=== PATIENT | male | born 1945 | race Caucasian/White ===

== ENCOUNTER → 2025-01-04 | Outpatient (CLI) | payer MEDICARE, SELFPAY ==
--- NOTE | 2025-01-04 10:30 | XR_ITS ---
Examination: CT abdomen with intravenous contrast CT pelvis with intravenous contrast 2-D coronal reconstructions 2-D sagittal reconstructions Date and time of exam: January 04, 2025, 1209 hours INDICATIONS: Diagnosis benign prostatic hyperplasia, difficulty urinating 1 month. CTDI: vol (mGy) 12.1 DLP: (mGycm) 417 Technique: Multiple axial sections of the abdomen and pelvis have been obtained. 64 slice high-resolution scanner used. 3 mm axial sections have been obtained, post intravenous injection 60 cc [id number] 2-D sagittal, coronal reconstructions obtained. Low dose protocols were performed. One or more of the following dose reduction techniques were used; automated exposure control, adjustment of the mA and/or KV according to patient size, use of iterative reconstruction technique. Findings: Lung density settings demonstrate at least 10 pulmonary nodules in the lower lung zones COPD with areas of airspace destruction No focal liver or splenic lesions No gallstones No pancreatic or adrenal mass Numerous bilateral 1 to 3 mm renal calculi, no hydronephrosis or ureteral calculi Abdominal artery calcification no aneurysmal dilatation No pericecal inflammatory change Colonic diverticulosis, no diverticulitis Normal seminal vesicles Significant prostatomegaly, transverse dimension 5.5 cm with prostatic calcifications Irregular mass in the urinary bladder, at least 5 x 5.3 cm Severe osteopenia IMPRESSION: COPD Multiple pulmonary nodules, recommend CT chest without contrast follow-up to confirm pulmonary nodular metastatic disease Numerous bilateral nonobstructing renal calculi Significant prostatomegaly 5 x 5.3 cm mass in the urinary bladder consistent with bladder carcinoma recommend cystoscopy follow-up
[2025-01-04 11:17] LABS: Albumin, Serum 4.5 gm/dL (3.4-4.8); Anion Gap 8 (7-16); BUN/Creatinine Ratio 12 Ratio (12-20); Blood Urea Nitrogen 14 mg/dL (9-23); Calcium 9.2 mg/dL (8.3-10.6); Calcium (Corrected) 9.2 mg/dL (8.5-10.1); Carbon Dioxide 30.5 mMol/L (20.0-31.0); Chloride 104 mMol/L (98-107); Creatinine (Component) 1.2 mg/dL (0.6-1.3); Glucose 101 mg/dL (74-106); Osmolality,Calculated 283 (275-295); Phosphorous 2.9 mg/dL (2.4-5.1); Potassium 4.3 mMol/L (3.4-5.1); Sodium 142 mMol/L (136-145); eGFR > 60 See Note
== END | disposition home or self-care (01) ==
LOC: SCAT 10:03
PROVIDERS: PCP Family Medicine; Referring Provider Surgery; Visit Provider Surgery
DX: J44.9 Chronic obstructive pulmonary disease, unspecified (principal); R91.8 Other nonspecific abnormal finding of lung field; N20.0 Calculus of kidney; N32.89 Other specified disorders of bladder; N40.0 Benign prostatic hyperplasia without lower urinary tract symptoms
CPT/HCPCS: 36415; 74177; 80069; A4649; Q9967